=== PATIENT | male | born 1985 ===

== ENCOUNTER → 2020-11-18 | Outpatient (CLI) | payer SELFPAY ==
[~2020-11-18] MED LIST: COVID-19 VACCINE (PFIZER)/PF 30 MCG/0.3 ML VIAL IM ONE; EPINEPHRINE INJ/PF 1 MG/1 ML AMPULE IM PRN
--- OUTSIDE RECORDS SUMMARY | 2020-11-21 10:17 | XMS REPORT ---
:1985 [facility] [address] [place] [address] Care Team Providers Name Role Phone PCP, NONE PER PATIENT Primary Care Physician Unavailable SHIRLEY RYDER Attending Clinician Unavailable Allergies, Adverse Reactions, Alerts This patient has no known allergies or adverse reactions. Medications Ordered Filled Start Stop Current Ordering Indication Dosage Frequency Signature Comments Components Medication Medication Date Date Medication? Clinician (SIG) Name Name albuterol 2017-10- No Acute 2.5MG Albuterol nebulizer 11-13 bronchospas Sulfate solution 12:00: 11:55 m Concentrat 2.5 mg 00 :00 e 2.5 Mg/0.5 Ml Solution For Nebulizati on azithromyci 2017-10 No Acute Take 2 Take 2 n -18 bronchitis, tablets tablet s (ZITHROMAX) 00:00: unspecified (500 mg ) (500 mg) 250 MG 00 organism on Day 1, on D ay tablet followed 1, by 1 followed tablet by 1 (250 mg) tablet once daily (250 mg) on Days 2 once through 5. daily on Days 2 through 5. codeine-gua 2017-10 No Cough 5mL Take 5 mL Leno e 5 mL ifenesin 18 by mouth by mouth (CHERATUSSI 00:00: Three (3) Thr ee (3) N AC) 00 times a times a 10-100 mg/5 day as day as mL liquid needed for neede d cough. for cough. albuterol 2017-10- No Acute 2{puff} Inhale 2 Inha le 2 (PROVENTIL 11-13 bronchospas puffs puf fs HFA;VENTOLI 00:00: 23:59 m every four ev fartun N HFA) 90 00 :00 (4) hours four ( 4) mcg/actuati as needed hour s as on inhaler for needed wheezing. for wheezing. albuterol 2017-10- No Acute 2{puff} Inhale 2 Inha le 2 (PROVENTIL 11-13 bronchospas puffs puf fs HFA;VENTOLI 00:00: 23:59 m every four ev fartun N HFA) 90 00 :00 (4) hours four ( 4) mcg/actuati as needed hour s as on inhaler for needed wheezing. for wheezing. predniSONE 2017-10- No Acute 40MG Take 2 Take 2 (DELTASONE) 11-13 bronchospas tablets tablets 20 MG 00:00: 23:59 m (40 mg (40 mg tablet 00 :00 total) by total) by mouth mouth daily. for daily. 4 days for 4 days Problems Condition Condition Condition Status Onset Resolution Last Treatin g Comments Name Details Category Date Date Treatment Clinician Date Not on Not on Condition Inactive file file Procedures Procedure Date / Time Performed Performing Clinician Devic e XR CHEST PA AND LATERAL 2018-09-13 16:51:56 Travis Ryder mp Results Test Description Test Time Test Comments Text Results Atomic Results Result Comments XR Chest 2 views 2018-09-13 11:54:17 XR Chest 2 views (09/13/2018 11:51 AM) Narrative Performed At Examination: Two-view chest. Comparison: None available Indication: [id number] Findings: Frontal and lateral views of the chest demonstrate no focal o pacity or pleural effusion. The lungs are well expanded. Cardiomediastinal contours and pulmonary vasculature ar e unremarkable. No acute osseo us abnormalities are noted. Imp ression: Normal chest. Signed (Electr onic Signature): 09/13/2018 11:54 AM Signed By: Danny Wilson MD [facility] Procedure Note Interface, Ra d Results In - 09/13/2018 11:56 AM EST Examination: Two-view chest. Comparison: None available Indication: [id number] Findings: Frontal and lateral views of the chest demonstrate no focal o pacity or pleural effusion. The lungs are well expanded. Cardiomediastinal contours and pulmonary vasculature ar e unremarkable. No acute osseo us abnormalities are noted. Imp ression: Normal chest. Signed (Electr onic Signature): 09/13/2018 11:54 AM Signed By: Danny Wilson MD Performing Organization Addr ess City/State/Zipcode Phone Num seema [facility] [address] [place] [address] #[id number] 2018-09-13 11:54:17 XR Chest 2 views (09/13/2018 11:51 AM re EST)SpecimenNarrativePerform ed AtExamination: Two-view ches t. Comparison: None available Indication: [id number] Findings: Frontal and lateral views of the chest demonstrate no focal o pacity or pleural effusion. The lungs are well expanded. Cardiomediastinal contours and pulmonary vasculature ar e unremarkable. No acute osseo us abnormalities are noted. Imp ression: Normal chest. Signed (Electr onic Signature): 09/13/2018 11:54 AM Signed By: Danny Wilson MD [facility] RADProcedure NoteInterface, Rad Results In - 09/13/2018 11:5 6 AM ESTExamination: Two-view nat st. Comparison: None available Indication: [id number] Findings: Frontal and lateral views of the chest demonstrate no focal o pacity or pleural effusion. The lungs are well expanded. Cardiomediastinal contours and pulmonary vasculature ar e unremarkable. No acute osseo us abnormalities are noted. Imp ression: Normal chest. Signed (Electr onic Signature): 09/13/2018 11:54 AM Signed By: TARIK Mahanerforming OrganizationAddressCity/Stat e/Zipcode Phone Number[facility] [phone] [facility] [place] [address] CBC WITH DIFFERENTIAL/PLATELET Test Item Value Reference Range Comments WBC (test code = 6690-2) 4.9 X10E3/UL 3.4-10.8 RBC (test code = 789-8) 4.77 X10E6/UL 4.14-5.80 HEMOGLOBIN (test code = 718-7) 14.4 G/DL 13.0-17.7 HEMATOCRIT (test code = 4544-3) 42.2 % 37.5-51.0 MCV (test code = 787-2) 89 FL 79-97 MCH (test code = 785-6) 30.2 PG 26.6-33.0 MCHC (test code = 786-4) 34.1 G/DL 31.5-35.7 RDW (test code = 788-0) 12 % 11.6-15.4 PLATELETS (test code = 777-3) 250 X10E3/UL 150-450 NEUTROPHILS (test code = 770-8) 43 % LYMPHS (test code = 736-9) 44 % MONOCYTES (test code = 5905-5) 8 % EOS (test code = 713-8) 4 % BASOS (test code = 706-2) 1 % NEUTROPHILS (ABSOLUTE) (test code = 751-8) 2.1 X10E3/UL 1.4-7 .0 LYMPHS (ABSOLUTE) (test code = 731-0) 2.2 X10E3/UL 0.7-3.1 MONOCYTES(ABSOLUTE) (test code = 742-7) .4 X10E3/UL 0.1-0.9 EOS (ABSOLUTE) (test code = 711-2) .2 X10E3/UL 0.0-0.4 BASO (ABSOLUTE) (test code = 704-7) 0 X10E3/UL 0.0-0.2 IMMATURE GRANULOCYTES (test code = 36917-5) 0 % IMMATURE GRANS (ABS) (test code = 71919-3) 0 X10E3/UL 0.0-0 .1 COMP. METABOLIC PANEL (14) Test Item Value Reference Range Comments GLUCOSE (test code = 2345-7) 91 MG/DL 65-99 BUN (test code = 3094-0) 12 MG/DL 6-20 CREATININE (test code = 2160-0) .85 MG/DL 0.76-1.27 EGFR IF NONAFRICN AM (test code = 31181-4) 114 ML/MIN/1.73 >59 EGFR IF AFRICN AM (test code = 93749-7) 132 ML/MIN/1.73 >59 BUN/CREATININE RATIO (test code = 3097-3) 14 9-20 SODIUM (test code = 2951-2) 141 MMOL/L 134-144 POTASSIUM (test code = 2823-3) 3.9 MMOL/L 3.5-5.2 CHLORIDE (test code = 2075-0) 105 MMOL/L 96-106 CARBON DIOXIDE, TOTAL (test code = 8-9) 25 MMOL/L 20-29 CALCIUM (test code = 39271-6) 9.3 MG/DL 8.7-10.2 PROTEIN, TOTAL (test code = 2885-2) 7.1 G/DL 6.0-8.5 ALBUMIN (test code = 1751-7) 4.7 G/DL 4.0-5.0 GLOBULIN, TOTAL (test code = 20137-9) 2.4 G/DL 1.5-4.5 A/G RATIO (test code = 1759-0) 2 1.2-2.2 BILIRUBIN, TOTAL (test code = 1975-2) .7 MG/DL 0.0-1.2 ALKALINE PHOSPHATASE (test code = 6768-6) 86 IU/L 39-117 AST (SGOT) (test code = 1920-8) 40 IU/L 0-40 ALT (SGPT) (test code = 1742-6) 55 IU/L 0-44 LIPID PANEL Test Item Value Reference Range Comments CHOLESTEROL, TOTAL (test code = 2093-3) 226 MG/DL 100-199 TRIGLYCERIDES (test code = 2571-8) 99 MG/DL 0-149 HDL CHOLESTEROL (test code = 2085-9) 38 MG/DL >39 VLDL CHOLESTEROL AMAURI (test code = 12419-3) 18 MG/DL 5-40 LDL CHOL CALC (NIH) (test code = 97731-2) 170 MG/DL 0-99 URIC ACID Test Item Value Reference Range Comments URIC ACID (test code = 3084-1) 7.4 MG/DL 3.7-8.6 Encounters Start End Encounter Admission Attending Care Care Encounter ID Date/Time Date/Time Type Type Clinicians Facility Department 2018-11-16 2018-11-16 Outpatient GUADALUPE DAVID [id number] 15:34:48 16:07:36 [id number] 2018-11-16 2018-11-[facility] [id number] 15:34:48 16:07:36 2018-11-16 2018-11-16 Outpatient GUADALUPE DAVID [id number] 00:00:00 00:00:00 [id number] 2018-09-13 2018-09-13 [facility] [id number] 11:42:43 23:59:00 2018-09-13 2018-09-13 [facility] [id number] 11:26:08 12:15:37 [id number] 2018-09-13 2018-09-13 Outpatient GUADALUPE BUTCHER [id number] 11:26:08 12:15:37 2018-09-13 2018-09-13 Outpatient GUADALUPE CROWDER [id number] 11:42:43 11:42:43 TRAVIS [id number] 2018-09-13 2018-09-13 Outpatient JONI HERNANDEZ [id number] 00:00:00 00:00:00 [id number] Immunizations Ordered Immunization Filled Immunization Date Status Commen ts Refusal Reason Name Name PPD Test 2018-11-16 Completed 00:00:00 Plan of Treatment Planned Activity Planned Date Details Comments Future Scheduled Test [code = ] Future Scheduled Test [code = ] Social History Social Habit Start Date Stop Date Comments Tobacco smoking status MIIS 2018-09-13 00:00:00 2018-09-13 00:00 :00 Vital Signs Vital Name Observation Time Observation Value Comments SYSTOLIC BLOOD PRESSURE 2018-11-16 15:45:00 145 mm[Hg] DIASTOLIC BLOOD PRESSURE 2018-11-16 15:45:00 82 mm[Hg] HEART RATE 2018-11-16 15:45:00 78 /min BODY TEMPERATURE 2018-11-16 15:45:00 36.78 [place] RESPIRATORY RATE 2018-11-16 15:45:00 16 /min HEIGHT 2018-11-16 15:45:00 180.3 cm WEIGHT 2018-11-16 15:45:00 117.935 kg OXYGEN SATURATION 2018-11-16 15:45:00 97 % SYSTOLIC BLOOD PRESSURE 2018-09-13 11:32:00 134 mm[Hg] DIASTOLIC BLOOD PRESSURE 2018-09-13 11:32:00 76 mm[Hg] HEART RATE 2018-09-13 11:32:00 70 /min BODY TEMPERATURE 2018-09-13 11:32:00 36.78 [place] RESPIRATORY RATE 2018-09-13 11:32:00 16 /min HEIGHT 2018-09-13 11:32:00 177.8 cm WEIGHT 2018-09-13 11:32:00 111.131 kg OXYGEN SATURATION 2018-09-13 11:32:00 95 %
== END ==
LOC: EMPHEALTH 10:45
PROVIDERS: ATTEND Internal Medicine
DX: Z23 Encounter for immunization (principal)
CPT/HCPCS: 91300